=== PATIENT | female | born 1985 | race Caucasian/White ===

== ENCOUNTER 2018-01-20 07:22 | Outpatient (CLI) | payer BC ==
--- NOTE | 2018-01-20 19:50 | CT ---
CT HEAD WITH AND WITHOUT IV CONTRAST: 01/20/18 HISTORY: Posterior cervical lymphadenopathy. Right sided neck mass. COMPARISON: None available. FINDINGS: There is no evidence of a hemorrhage, acute infarction, mass effect, or midline shift. Ventricles are normal in size, shape and position. There is a low density area seen within the right temporal lobe. This does not demonstrate enhancemen t after the administration of intravenous contrast. The exact etiology is uncertain; although, this i s abnormal in a patient of this age. There is mucosal thickening in the right maxillary antrum. Mastoid air cells are clear. The calvarial structures are intact. IMPRESSION: Low density focus in the right temporal lobe measuring approximately 12 mm without enhancement. The e xact etiology for this structure is uncertain; however, this is abnormal in a patient of this age. No prior studies are available to evaluate for stability. MRI of the brain with and without IV contrast is recommended for further evaluation. POS: [facility]
--- NOTE | 2018-01-21 11:13 | CT ---
CT NECK WITH CONTRAST: Technique: Multiple axial tomograms were obtained through the neck with IV enhancement. Indications: Posterior cervical adenopathy. Patient complains of a right sided neck mass, for one mon th. The area of palpable concern is marked with a skin marker on the right. Comparison: None. FINDINGS: Parotid glands and submandibular glands unremarkable. Thyroid gland shows a small low density nodule posterior right lobe measuring approximately 5 mm. Thyroid otherwise appears unremarkable. The nasopharynx appears unremarkable. Oropharynx and base of tongue unremarkable. Waldeyer's ring appears symmetric. The hypopharynx and larynx unremarkable. The review of level I lymph nodes reveals mildly prominent level I lymph nodes/submandibular nodes a nterior to the submandibular gland bilaterally. The larger on the left measures 1 cm. There are enlar ged level I glands slightly more superior at the angle of jaw bilaterally measuring 1.5 cm on the rig ht and 1.3 cm on the left. Left II nodes are nonspecific, measuring up to 1 cm bilaterally. There are multiple small subcentimet er 2B lymph nodes posterior to the vascular bundle bilaterally. No significant level IV lymph nodes. There are small level V lymph nodes seen bilaterally and there is a level V lymph node on the right p osterior to the sternocleidomastoid muscle at the site of the skin marker which would most likely rep resent the area of palpable concern. This level V lymph node on the right measures up to 1 cm. There is a larger level V lymph node on the right just medial to the sternocleidomastoid muscle near the sk in marker which has a total measurement of 1.5 cm in the axial plane. There is a level V lymph node o n the left posterior to the sternocleidomastoid measuring 1 cm. The flag signalman space is unremarkable. The parapharyngeal space and retropharyngeal space is unremarka ble. Carotid space unremarkable. Review of the paranasal sinuses reveals focal mucosal thickening in the floor of the right maxillary antrum and along the anterior wall of the right maxillary antrum, possibly representing mucosal reten tion cysts. Paranasal sinuses are otherwise well aerated. IMPRESSION: Nonspecific bilateral cervical adenopathy. There are mildly prominent submandibular nodes seen bilate rally with enlarged nodes as seen at the angle of the mandible on both sides. The level II jugular di gastric nodes are mildly prominent but nonspecific. There are increased number and size of the level V/posterior triangular nodes. An enlarged level V node on the right corresponds to the area of palpab le concern. The appearance of the nodes appear nonspecific and could represent reactive adenopathy. R ecommend clinical correlation. The palpable node posteriorly on the right would be amendable to biops y. POS: [facility]
== END 2018-01-20 07:23 | disposition home or self-care (01) ==
LOC: BICCT 07:22
PROVIDERS: ATTEND Internal Medicine
DX: R59.0 Localized enlarged lymph nodes (principal)
CPT/HCPCS: 70470; 70491

== ENCOUNTER 2018-02-03 11:11 | Outpatient (CLI) | payer BC ==
--- NOTE | 2018-02-03 15:09 | MRI ---
PRE AND POST CONTRAST ENHANCED MRI OF THE BRAIN: Date: 02-03-18 Comparison: CT brain, 01-20-18 Technique: Multiplanar, multisequence pre and post contrast enhanced MRI images were obtained of the brain. FINDINGS: Images demonstrate what appears to be a 5 mm area of increased T2 cystic density in the medial right anterior temporal lobe. There are surrounding areas of peripheral more posterolateral T2 signal incre ase in the adjacent white matter in the right temporal lobe. This lesion demonstrates no evidence of enhancement on the contrast enhanced images. I am concerned about a possible right temporal lobe mass , including low grade primary brain neoplasm or infectious etiology. No other intracranial mass lesio n is seen. No abnormal areas of signal abnormality seen in the periventricular white matter otherwise. No eviden ce of ventricular enlargement is seen. No enhancing intracranial mass lesions seen. Correlation with cerebral spinal fluid evaluation may be of use. IMPRESSION: Partially cystic, with adjacent areas of T2 signal abnormality in the medial right temporal lobe. Dif ferential diagnosis includes low grade malignancy versus infectious etiologies. POS: [facility]
[2018-02-03] MEDS ORDERED: Gadobenate Dimeglumine 529 MG/1 ML (20ML VIAL) ONE (16:34)
== END 2018-02-03 11:12 | disposition home or self-care (01) ==
LOC: MRI 11:11
PROVIDERS: ATTEND Neurological Surgery
DX: R93.0 Abnormal findings on diagnostic imaging of skull and head, not elsewhere classified (principal); R90.89 Other abnormal findings on diagnostic imaging of central nervous system
CPT/HCPCS: 70553

== ENCOUNTER 2018-02-09 10:05 | Day surgery (SDC) | payer BC ==
[2018-02-08 12:52] VITALS: BMI 30.2
[2018-02-09] MEDS ORDERED: Sodium Bicarbonate 2.5 MEQ/5 ML VIAL ONE (10:19)
--- NOTE | 2018-02-09 13:11 | ULT ---
ULTRASOUND GUIDED RIGHT NECK LYMPH NODE CORE BIOPSY: Indication: Enlarged palpable lymph node of the right neck. Comparison: CT soft tissue neck, 01-20-18. Technique: Informed consent was obtained. Pre-procedure ultrasound demonstrated the palpable lymph node overlyin g the right aspect of the posterior neck near the sternocleidomastoid. The lymph node measures 1.0 x 0.3 cm. The side overlying this lymph node was sterilely prepped and draped. The site was anesthetize d utilizing buffered 1% Lidocaine. Small incision was made. Eight separate core samples were obtained utilizing a 20 gauge biopsy needle. Four samples were submitted in formalin and four samples were vieyra bmitted RPY solution. The patient tolerated the biopsy without difficulty. Pressure was held at the b iopsy site until hemostatis was obtained. IMPRESSION: Successful ultrasound guided core biopsy of a palpable enlarged lymph node within the right neck. POS: [facility]
== END 2018-02-09 11:40 | disposition home or self-care (01) ==
LOC: ULT 10:05
PROVIDERS: ATTEND Otolaryngology Plastic Surgery within the Head & Neck
PROC: 07D13ZX Extraction of Right Neck Lymphatic, Percutaneous Approach, Diagnostic (ICD-10-PCS; principal; 2018-02-09)
DX: R59.0 Localized enlarged lymph nodes (principal); J34.3 Hypertrophy of nasal turbinates; J34.2 Deviated nasal septum; K21.9 Gastro-esophageal reflux disease without esophagitis; Z88.0 Allergy status to penicillin; Z79.899 Other long term (current) drug therapy
CPT/HCPCS: 38505; 88184; 88305

== ENCOUNTER 2018-08-31 14:12 | Outpatient (CLI) | payer BC ==
[~2018-08-31 14:12] MED LIST: Gadobenate Dimeglumine 529 MG/1 ML (20ML VIAL) ONE
--- NOTE | 2018-08-31 15:40 | MRI ---
Pre and postcontrast enhanced MRI images brain HISTORY: Follow-up right temporal lobe lesion. Multiplanar multisequence pre and postcontrast enhanced MRI images of brain obtained. Comparison made to previous exam from 02/03/2018. MRI images demonstrate an area of T2 signal abnormality seen in the right anterior temporal lobe. The degree of T2 signal change as well as the cystic component is stable. No newly developed masses or lesions seen. No evidence of contrast enhancement seen. No other intracranial mass lesions or abnormalities seen. Right maxillary sinus mucus retention cyst appears to have increased in size. IMPRESSION: Stable right temporal lobe lesion. Transcribed Date/Time: 08/31/2018 4:35 PM
== END 2018-08-31 14:13 | disposition home or self-care (01) ==
LOC: SCSMRI 14:12
PROVIDERS: ATTEND Neurological Surgery
DX: D49.6 Neoplasm of unspecified behavior of brain (principal); G93.89 Other specified disorders of brain
CPT/HCPCS: 70553; A9577

== ENCOUNTER 2019-04-19 13:41 | Outpatient (CLI) | payer BC ==
--- NOTE | 2019-04-19 15:37 | MRI ---
MRI BRAIN WITH AND WITHOUT CONTRAST: DATE: 04/19/2019 HISTORY: 34-year-old female with ICD-10: "D49.6, brain tumor" Follow-up brain lesion TECHNIQUE: Multiplanar, multisequence MRI of the brain obtained pre and post IV injection of gadolinium based co ntrast agent. 18 mL MultiHance. COMPARISON: 08/31/2018 and 02/03/2018 FINDINGS: At the anterior portion of the right temporal lobe, there is an approximately 1.3 x 1.2 cm focal lesi on. At the anteromedial edge of the lesion, there is a well-circumscribed 0.6 x 0.6 x 0.6 cm cystic lesion (which follows CSF signal intensity on all pulse sequences). The rest of the lesion is solid, and is T2 hyperintense (intensity between that of cortical troncoso matter and CSF on T2 WI) and mildly T1 hypointense (isointense to cortical troncoso matter on T1 WI). This lesion does not enhance. It has no t changed in size. It abuts one of the proximal branches of the right middle cerebral artery trifurcation. Etiology is uncertain. One possibility is very low-grade neoplasm such as ganglioglioma or DNET (dysembryoplastic neuroepithelial tumor), although the appearance is not classic for either. The ventricles are normal in size and configuration. There is no midline shift or any other evidence of mass effect. There is no extra-axial fluid collection. There is no other intra-axial signal abnormality, abnormal enhancement, mass, recent hemorrhage, or restricted diffusion. IMPRESSION: No interval change in the 1.2 cm small right temporal lobe intra-axial lesion with simple cystic and solid components.
[2019-04-19] MEDS ORDERED: Magnevist 469MG/ML 20 ML VIAL ONE (16:00)
== END 2019-04-19 13:42 | disposition home or self-care (01) ==
LOC: TBSIIMAG 13:41
PROVIDERS: ATTEND Neurological Surgery
DX: D49.6 Neoplasm of unspecified behavior of brain (principal); G93.89 Other specified disorders of brain
CPT/HCPCS: 70553; A9579

== ENCOUNTER 2020-05-29 08:23 | Outpatient (CLI) | payer BC ==
--- NOTE | 2020-05-29 09:53 | MRI ---
Exam: Brain MRI with and without contrast HISTORY: Follow-up brain tumor COMPARISON: 04/19/2019 FINDINGS: Gradient echo sequence: No hemorrhage Calvarium: Appropriate T1 marrow signal intensity Midline brain parenchyma: Unremarkable Cerebrum:Redemonstration of a T2 hyperintense focus measuring 0.7 x 0.8 cm. There is additional FLAIR hyperintensity. Overall this lesion measures 1.2 x 1.3 cm. There is no associated enhancement. No midline shift. Basilar cisterns are patent. Brain volume is age-appropriate. Cortical troncoso-white amaya er differentiation is preserved. No significant T2 or FLAIR white matter hyperintensities Ventricles: No evidence of hydrocephalus. Sinuses and mastoid air cells: Mild mucosal thickening of the paranasal sinuses Diffusion: Central arterial flow is maintained. Absent restricted diffusion. Postcontrast images: No pathologic enhancement of the brain parenchyma. IMPRESSION: Stable nonenhancing lesion involving the right temporal lobe with evidence of a cystic component with adjacent peripheral T2/FLAIR hyperintensity.
[2020-05-29] MEDS ORDERED: Magnevist 469MG/ML 20 ML VIAL ONE (14:11)
== END 2020-05-29 08:24 | disposition home or self-care (01) ==
LOC: MRI 08:23
PROVIDERS: ATTEND Neurological Surgery
DX: D49.6 Neoplasm of unspecified behavior of brain (principal); G93.89 Other specified disorders of brain
CPT/HCPCS: 70553; A9579

== ENCOUNTER 2022-08-05 13:19 | Outpatient (CLI) | payer BC ==
[~2022-08-05 13:19] MED LIST changes: -Gadobenate Dimeglumine 529 MG/1 ML (20ML VIAL) ONE; +Magnevist 469MG/ML 20 ML VIAL ONE
== END 2022-08-05 13:20 | disposition home or self-care (01) ==
LOC: TBSIIMAG 13:19
PROVIDERS: ATTEND Neurological Surgery
DX: D49.6 Neoplasm of unspecified behavior of brain (principal); G93.89 Other specified disorders of brain; J34.89 Other specified disorders of nose and nasal sinuses
CPT/HCPCS: 70553